=== PATIENT | male | born 1970 | race Caucasian/White ===

== ENCOUNTER 2023-08-17 08:00 | Outpatient (CLI) | payer OTHER, SELFPAY | END 2023-08-17 08:01 | disposition home or self-care (01) | LOC: NFLDREF 15:33 | PROVIDERS: PCP Family Medicine; Referring Provider Family Medicine; Visit Provider Family Medicine | DX: E78.5 Hyperlipidemia, unspecified (principal); I10 Essential (primary) hypertension; Z12.5 Encounter for screening for malignant neoplasm of prostate | CPT/HCPCS: 80053; 80061; 84153 ==

== ENCOUNTER 2024-06-15 13:02 | Emergency (ER) | payer OTHER, SELFPAY ==
[2024-06-15 13:12] VITALS: BP 137/87; PULSE 88; RESP 16; TEMP 36.6; O2SAT 96
--- NOTE | 2024-06-15 13:43 | ED_ITS ---
HPI - General Adult General Chief complaint: Laceration/Wound Stated complaint: Cut right finger Time Seen by Provider: 06/15/24 13:08 Source: patient Mode of arrival: ambulatory Limitations: no limitations History of Present Illness HPI narrative: 53-year-old male presenting today with a laceration to the tip of the right ring finger that he sustained while using a vegetable mandoline. Denies any other injury. Tetanus last updated in 2016. Related Data Home Medications ?Medication ?Instructions ?Recorded ?Confirmed omeprazole 20 mg capsule,delayed 20 mg PO DAILY 06/15/24 06/15/24 release Previous Rx's ?Medication ?Instructions ?Recorded lisinopril 20 1 tab PO QDAY #90 tabs 08/14/23 mg-hydrochlorothiazide 12.5 mg tablet lorazepam 1 mg tablet 1 mg PO QDAY PRN stress test #2 08/14/23 tabs peg 3350-electrolytes 236 240 ml PO Q10M #4,000 mL 08/14/23 gram-22.74 gram-6.74 gram-5.86 gram solution (Golytely) rosuvastatin 10 mg tablet 10 mg PO QDAY #90 tabs 08/14/23 Allergies Allergy/AdvReac Type Severity Reaction Status Date / Time No Known Drug Allergies Allergy Verified 06/15/24 13:10 Review of Systems Status of ROS: Reports: 6 or more systems reviewed and unremarkable except as noted in History and below PFSH PFS Surgical History History of appendectomy (2007) ?Z90.49 - Acquired absence of other specified parts of digestive tract (ICD- 10) History of Achilles tendon repair (2005) ?Z98.890 - Other specified postprocedural states (ICD-10) Family History Mother Coronary artery disease Father Prostate cancer, Onset Age: 80 Other Family history of cardiac arrhythmia Family history of hypertension Social History What is your current living situation?: I presently have a place to live Problems where you live: no known problems In the past 12 months, utilities in danger of being shut off: no In past 12 months, lack of transportation kept you from medical appts, meetings, work, or getting things needed for daily living: no In the past 12 mos, have been you worried that your food would run out before you had money to buy more?: never true In the past 12 mos, the food you bought just didn't last and you didn't have money to buy more?: never true How often does anyone, including family, friends and others, physically hurt you : never How often does anyone, including family, friends and others, insult or talk down to you: never How often does anyone, including family, friends and others, threaten you with harm: never How often does anyone, including family, friends and others, scream or curse at you: never Little interest or pleasure in doing things: not at all Exam Narrative: Exam Narrative: Well-nourished well-developed patient in no acute distress. Alert and oriented. Answers questions appropriately. Mood and affect are appropriate. Thoughts are goal oriented and rational. No tangential or magical thinking noted. Patient speaks in full sentences without needing to catch his breath. HEENT: Normocephalic atraumatic. Extraocular muscles are intact. Conjunctivae are moist without any icterus noted. Extremities: Patient has a flap laceration on the tip of the right ring finger. No bone visualized. Const: Vital Signs, click to edit/add: Vital Signs - 24 hr 06/15/24 13:12 Temperature 98 F Pulse Rate [Pulse Oximeter] 88 Respiratory Rate 16 Blood Pressure [Ri ght Upper Arm] 137/87 Pulse Oximetry 96 Oxygen Delivery Me thod Room Air Course Course ED Course: Base of the finger was cleaned and he digital block was done with lidocaine. The wound was then cleaned and explored. 4 sutures with 4-0 Ethilon were placed around the flap. We did go ahead and update his tetanus shot today and has been 8 years and the laceration was fairly deep. Vital Signs Vital signs: Initial Vital Signs Temperature 98 F 06/15/24 13:12 Temperature Source Temporal Artery Scan 06/15/24 13:12 Pulse Rate 88 06/15/24 13:12 Respiratory Rate 16 06/15/24 13:12 Blood Pressure 137/87 06/15/24 13:12 Blood Pressure Mean 103 06/15/24 13:12 Blood Pressure Position Sitting 06/15/24 13:12 Pulse Oximetry 96 06/15/24 13:12 Oxygen Delivery Method Room Air 06/15/24 13:12 Vital Signs Temperature 98 F 06/15/24 13:12 Pulse Rate 88 06/15/24 13:12 Respiratory Rate 16 06/15/24 13:12 Blood Pressure 137/87 06/15/24 13:12 Pulse Oximetry 96 06/15/24 13:12 Oxygen Delivery Method Room Air 06/15/24 13:12 Temperature 98 F 06/15/24 13:12 Pulse Rate 88 06/15/24 13:12 Respiratory Rate 16 06/15/24 13:12 Blood Pressure 137/87 06/15/24 13:12 Pulse Oximetry 96 06/15/24 13:12 Oxygen Delivery Method Room Air 06/15/24 13:12 Medical Decision Making MDM Narrative Medical decision making narrative: 53-year-old male laceration to put the finger treated per above. Discharge Plan Discharge Clinical Impression: Laceration Patient Disposition: Home, Self-Care Condition: Improved Additional Instructions: Keep wound clean and dry. Do not soak such as taking baths, swimming or doing dishes. Follow-up in approximately 1 week for suture removal with your primary care provider. Watch for signs and symptoms of infection including increasing redness of the area, purulent drainage, or fever. If this occurs follow-up right away with your doctor or return to the ER. Prescriptions: No Action rosuvastatin 10 mg tablet 10 mg PO QDAY Qty: 90 3RF lisinopril-hydrochlorothiazide 20-12.5 mg tablet 1 tab PO QDAY Qty: 90 3RF peg 3350-electrolytes [Golytely] 236-22.74-6.74 -5.86 gram recon soln 240 ml PO Q10M Qty: 4000 0RF Rx Instructions: until fecal effluent is clear lorazepam 1 mg tablet 1 mg PO QDAY PRN (Reason: stress test) Qty: 2 0RF Hold Instructions: for CT scan Rx Instructions: take 1 hr prior to stress test omeprazole 20 mg capsule,delayed release(DR/EC) 20 mg PO DAILY Follow Up/Referrals: [place] To MD [Primary Care Provider] - Stand Alone Forms: [facility] Info Inst[facility]
[2024-06-15] MEDS: TETANUS/DIPHTH/PERTUSSIS 0.5 ML SYRINGE IM (13:53)
[2024-06-15 14:02] VITALS: BP 137/87; PULSE 88; RESP 16; TEMP 36.6
== END 2024-06-15 14:03 | disposition home or self-care (01) ==
PROVIDERS: Emergency Provider Family Medicine; PCP Family Medicine
DX: S61.214A Laceration without foreign body of right ring finger without damage to nail, initial encounter (principal); W26.8XXA Contact with other sharp object(s), not elsewhere classified, initial encounter; Z23 Encounter for immunization
CPT/HCPCS: 12001; 90471; 90715; 99284

== ENCOUNTER 2024-10-06 08:52 | Outpatient (CLI) | payer OTHER, SELFPAY | END 2024-10-06 08:53 | disposition home or self-care (01) | LOC: NFLDREF 14:16 | PROVIDERS: PCP Family Medicine; Referring Provider Family Medicine; Visit Provider Family Medicine | DX: Z00.00 Encounter for general adult medical examination without abnormal findings (principal); I10 Essential (primary) hypertension; E78.5 Hyperlipidemia, unspecified; E66.9 Obesity, unspecified; Z12.5 Encounter for screening for malignant neoplasm of prostate | CPT/HCPCS: 80053; 80061; G0103 ==

== ENCOUNTER 2025-10-06 06:32 | Outpatient (CLI) | payer BC, SELFPAY ==
--- NOTE | 2025-10-06 08:12 | P.ANES_ITS ---
Anesthesia Charges Start Date/Time Anesthesia Start Date: 10/06/25 Anesthesia Start Time: 07:18 Stop Date/Time Anesthesia Stop Date: 10/06/25 Anesthesia Stop Time: 07:45 Coding CPT Codes CPT Codes: SAMINA LWR INTST NDSC NOS - [id number] ([id number]) P2 - PATIENT W/MILD SYST DISEASE, QK - VENEER LATHE OPERATOR 2-4 CNCRNT ANES PROC, QX - CAFETERIA ASSISTANT SVC W/ MD MED DIRECTION
--- NOTE | 2025-10-06 08:12 | W.ANESCHARGE ---
Anesthesia Charges Start Date/Time Anesthesia Start Date: 10/06/25 Anesthesia Start Time: 07:18 Stop Date/Time Anesthesia Stop Date: 10/06/25 Anesthesia Stop Time: 07:45 Coding CPT Codes CPT Codes: SAMINA LWR INTST NDSC NOS - [id number] ([id number]) P2 - PATIENT W/MILD SYST DISEASE, QK - [employer] OFFICER 2-4 CNCRNT ANES PROC, QX - EXHAUSTER ENGINEER SVC W/ MD MED DIRECTION
--- NOTE | 2025-10-06 11:33 | P.ANES_ITS ---
Anesthesia Charges Start Date/Time Anesthesia Start Date: 10/06/25 Anesthesia Start Time: 07:18 Stop Date/Time Anesthesia Stop Date: 10/06/25 Anesthesia Stop Time: 07:45 Coding CPT Codes CPT Codes: SAMINA LWR INTST NDSC NOS - [id number] ([id number]) P2 - PATIENT W/MILD SYST DISEASE, QK - PRISONER CLASSIFICATION INTERVIEWER 2-4 CNCRNT ANES PROC, QX - SHEETER OPERATOR SVC W/ MD MED DIRECTION
--- NOTE | 2025-10-06 11:33 | W.ANESCHARGE ---
Anesthesia Charges Start Date/Time Anesthesia Start Date: 10/06/25 Anesthesia Start Time: 07:18 Stop Date/Time Anesthesia Stop Date: 10/06/25 Anesthesia Stop Time: 07:45 Coding CPT Codes CPT Codes: SAMINA LWR INTST NDSC NOS - [id number] ([id number]) P2 - PATIENT W/MILD SYST DISEASE, QK - COMPUTER PROGRAMMING MANAGER 2-4 CNCRNT ANES PROC, QX - SPEECH THERAPY DIRECTOR SVC W/ MD MED DIRECTION
== END 2025-10-06 06:33 | disposition home or self-care (01) ==
LOC: OP CLINIC 06:34
PROVIDERS: PCP Family Medicine; Visit Provider Internal Medicine
DX: Z12.11 Encounter for screening for malignant neoplasm of colon (principal); D12.4 Benign neoplasm of descending colon; K57.30 Diverticulosis of large intestine without perforation or abscess without bleeding
CPT/HCPCS: 00811; 00812; 45380; J2704

== ENCOUNTER 2025-10-23 08:52 | Outpatient (CLI) | payer BC, SELFPAY | END 2025-10-23 08:53 | disposition home or self-care (01) | LOC: NFLDREF 10-28 09:59 | PROVIDERS: PCP Family Medicine; Referring Provider Family Medicine; Visit Provider Family Medicine | DX: E78.5 Hyperlipidemia, unspecified (principal); Z12.5 Encounter for screening for malignant neoplasm of prostate | CPT/HCPCS: 80053; 80061; G0103 ==